=== PATIENT | female | born 1965 | race Caucasian/White ===

== ENCOUNTER 2016-06-23 06:06 | Day surgery (SDC) | payer OTHER ==
[~2016-06-23 06:06] MED LIST: NORCO 10-325 T1 EACH PO
[2016-06-23] MEDS ORDERED: PERCOCET 7.5-31 EACH PO (10:41)
== END 2016-06-23 07:00 | disposition home or self-care (01) ==
LOC: ZOBSOF 06:06 → UNDOADMIN 06:06 → OR 06:06 → ZOBSOF 06:06 → OR 07:00 → EDSTATUS 09:45
PROVIDERS: Orthopaedic Surgery
PROC: 0XP60YZ Removal of Other Device from Right Upper Extremity, Open Approach (ICD-10-PCS; principal; 2016-06-23 08:15)
DX: T84.122A Displacement of internal fixation device of bone of right forearm, initial encounter (principal); T84.82XA Fibrosis due to internal orthopedic prosthetic devices, implants and grafts, initial encounter; F17.210 Nicotine dependence, cigarettes, uncomplicated; Z90.89 Acquired absence of other organs; Z98.51 Tubal ligation status; Z96.631 Presence of right artificial wrist joint; Z79.891 Long term (current) use of opiate analgesic; Z79.899 Other long term (current) drug therapy; Y83.1 Surgical operation with implant of artificial internal device as the cause of abnormal reaction of the patient, or of later complication, without mention of misadventure at the time of the procedure
CPT/HCPCS: 0; 73070; 76000; 87070; 87205; J0690; J1100; J2250; J2405; J2550; J2765; J2795; J3010; J7120